=== PATIENT | male | born 1985 | race Caucasian/White ===

== ENCOUNTER 2017-05-12 14:15 | Emergency (ER) | payer OTHER ==
[2017-05-12 14:22] VITALS: BP 144/93; PULSE 78; RESP 18; TEMP 98.4
--- NOTE | 2017-05-12 14:34 | ED ---
General Adult HPI - General Chief complaint: Dental/Oral Stated complaint: mouth injury Time Seen by Provider: 05/12/17 14:23 Source: patient, RN notes reviewed Mode of arrival: ambulatory Limitations: no limitations - History of Present Illness Initial comments: Patient 31-year-old male who presents emergency room today with a chief complaint of injury to one of his front teeth that occurred about an hour half ago. Does admit that he was using a pry bar prying something up and slipped came back at him in the upper lip. Did cause a small laceration. States tetanus is up-to-date. States that he did not lose consciousness. Denies any headache. He does admit some pain locally over tooth #9. Patient states is unsure if he did any damage. Patient does admit to a local numbness type feeling. Patient denies any other complaints or symptoms. Patient denies any recent fever, chills, shortness of breath, chest pain, back pain, abdominal pain , nausea or vomiting, numbness or tingling, dysuria or hematuria, constipation or diarrhea, headaches or visual changes, or any other complaints. - Related Data Allergies Allergy/AdvReac Type Severity Reaction Status Date / Time No Known Allergies Allergy Verified 05/12/17 14:21 Review of Systems ROS Statement: Those systems with pertinent positive or pertinent negative responses have been documented in the HPI. ROS Other: All systems not noted in ROS Statement are negative. Past Medical History Past Medical History: No Reported History History of Any Multi-Drug Resistant Organisms: None Reported Past Surgical History: Appendectomy, Orthopedic Surgery Past Psychological History: ADD/ADHD Smoking Status: Current every day smoker Past Alcohol Use History: Occasional Past Drug Use History: None Reported General Exam - General Exam Comments Initial Comments: General: The patient is awake and alert, in no distress, and does not appear acutely ill. Eye: Pupils are equal, round and reactive to light, extra-ocular movements are intact. No nystagmus. There is normal conjunctiva bilaterally. No signs of icterus. Ears, nose, mouth and throat: There are moist mucous membranes and no oral lesions. No dental fractures appreciated on exam. Both teeth 8 and [address] Neck: The neck is supple, there is no tenderness or JVD. Cardiovascular: There is a regular rate and rhythm. No murmur, rub or gallop is appreciated. Respiratory: Lungs are clear to auscultation, respirations are non-labored, breath sounds are equal. No wheezes, stridor, rales, or rhonchi. Musculoskeletal: Normal ROM, no tenderness. Strength 5/5. Sensation intact. Pulses equal bilaterally 2+. Neurological: A&O x 3. CN II-XII intact, There are no obvious motor or sensory deficits. Coordination appears grossly intact. Speech is normal. Skin: Patient does have a 1 cm linear laceration running vertically midline of the upper lip. Does not cross the vermilion border. Wound edges are approximated there is no active bleeding. Psychiatric: Cooperative, appropriate mood & affect, normal judgment. Limitations: no limitations Course Vital Signs 05/12/17 14:19 Temperature 98.4 F Pulse Rate 78 Respiratory 18 Rate Blood Pressure 144/93 O2 Sat by Pulse 98 Oximetry Medical Decision Making - Medical Decision Making Was discussed with patient about the importance of following up with dentist to have teeth rechecked. Options were discussed about possible sutures for laceration to the upper lip. It does not go through to the inner aspect of his mouth. Wound edges are approximated. At this time he states he does not feel that the sutures are necessary and will be discharged home. Patient advised to continue with anti-inflammatories for pain. He is advised follow-up dentist over the next 2 days. Advised return if any symptoms increase worsen or for any other concerns. Disposition Clinical Impression: Laceration, Dental contusion Disposition: HOME SELF-CARE Condition: Good Instructions: Laceration (ED) Additional Instructions: Please follow-up with dentist in the next 1-2 days. Please use ice to the area for swelling for 10-15 minutes at a time. Please continue anti-inflammatories for pain. Please return to emergency room for any other concerns as discussed. Referrals: None,Stated [Primary Care Provider] - 1-2 days Time of Disposition: 14:33
== END 2017-05-12 14:46 | disposition home or self-care (01) ==
LOC: EC 14:15
DX: S01.511A Laceration without foreign body of lip, initial encounter (principal); S00.532A Contusion of oral cavity, initial encounter; W22.8XXA Striking against or struck by other objects, initial encounter; F17.200 Nicotine dependence, unspecified, uncomplicated
CPT/HCPCS: 99283

== ENCOUNTER 2018-01-03 10:41 | Emergency (ER) | payer OTHER ==
[2018-01-03 10:51] VITALS: BP 138/78; PULSE 71; RESP 18; TEMP 99
--- NOTE | 2018-01-03 11:12 | ED ---
Lower Extremity Injury HPI - General Chief Complaint: Extremity Injury, Lower Stated Complaint: RT ANKLE INJURY Time Seen by Provider: 01/03/18 10:50 Source: patient Mode of arrival: ambulatory Limitations: no limitations - History of Present Illness Initial Comments: This 32-year-old white male presents with a complaint of some right ankle pain. He states that he jumped off his trailer and twisted his right ankle. He is complaining of pain both laterally and medially. He denies any other injuries. He was able to ambulate slightly afterwards. He does relate that he also fractured that ankle several years ago and was treated by Dr. Ramirez from orthopedics. He denies any other complaints or modifying factors. This occurred just shortly prior to arrival. - Related Data Home Medications Medication Instructions Recorded Confirmed Ibuprofen [Motrin Ib] 600 - 800 mg PO BID 01/03/18 01/03/18 Previous Rx's Medication Instructions Recorded traMADol HCl [Ultram] 50 - 100 mg PO Q6H PRN #15 tab 01/03/18 Allergies Allergy/AdvReac Type Severity Reaction Status Date / Time No Known Allergies Allergy Verified 01/03/18 11:07 Review of Systems ROS Statement: Those systems with pertinent positive or pertinent negative responses have been documented in the HPI. ROS Other: All systems not noted in ROS Statement are negative. Past Medical History Past Medical History: No Reported History History of Any Multi-Drug Resistant Organisms: None Reported Past Surgical History: Appendectomy, Orthopedic Surgery Past Psychological History: ADD/ADHD Smoking Status: Current every day smoker Past Alcohol Use History: Occasional Past Drug Use History: None Reported General Exam Limitations: no limitations Extremities exam: Present: tenderness (Tenderness is noted both medially and laterally to the right ankle. There is no significant swelling noted. There is some pain with range of motion. There is no foot tenderness or swelling noted. There is no proximal fibular or tibia tenderness. Strength is intact.) Neurological exam: Present: alert, oriented X3. Absent: motor sensory deficit Skin exam: Present: intact. Absent: rash Course Vital Signs 01/03/18 10:47 Temperature 99 F Pulse Rate 71 Respiratory 18 Rate Blood Pressure 138/78 O2 Sat by Pulse 98 Oximetry Medical Decision Making - Medical Decision Making The patient was seen and examined. All diagnostics were reviewed. An x-ray was done of the right ankle. The radiologist does note a possible distal fibula avulsion fracture. The patient is placed in a 4 inch Ortho-Glass custom molded short leg splint by myself. Excellent post-splint neurovascular status is noted. He does relate that he has followed up with Dr. Lopez from the past and he will be [facility]. He does not have crutches and crutches will be prescribed as well. It is not felt as though he should do any weightbearing until cleared by orthopedics. Disposition Clinical Impression: Fracture of distal fibula Disposition: HOME SELF-CARE Condition: Good Instructions: Ankle Sprain (ED), Splint Care (ED) Prescriptions: traMADol HCl [Ultram] 50 - 100 mg PO Q6H PRN #15 tab PRN Reason: Pain Referrals: Karissa Ziegler MD [Primary Care Provider] - 1-2 days Joseph Rodrigez DO [Doctor of Osteopathic Medicine] - As Soon As Possible Time of Disposition: 11:35
--- NOTE | 2018-01-03 11:19 | XR ---
Right ankle HISTORY: Trauma and pain 3 views of the right ankle Small lucency question that the distal aspect of the fibula on the frontal exam. There is a spur at t he talar neck. Alignment is maintained. No dislocation. There is mild soft tissue swelling. IMPRESSION: Correlate for point tenderness at the fibula distally for nondisplaced fracture, findings may be projectional. No dislocation. Soft tissue swelling. Follow-up as indicated.
== END 2018-01-03 11:45 | disposition home or self-care (01) ==
LOC: EC 10:41
DX: S82.831A Other fracture of upper and lower end of right fibula, initial encounter for closed fracture (principal); F17.200 Nicotine dependence, unspecified, uncomplicated; Z79.1 Long term (current) use of non-steroidal anti-inflammatories (NSAID); X50.1XXA Overexertion from prolonged static or awkward postures, initial encounter; Y93.39 Activity, other involving climbing, rappelling and jumping off
CPT/HCPCS: 29515; 99283

== ENCOUNTER 2019-04-24 00:11 | Emergency (ER) | payer OTHER ==
[2019-04-24 00:19] VITALS: RESP 16; TEMP 97.9
[2019-04-24 01:16] LABS: Glucose,Whole Blood 421 mg/dL (75-99)
[2019-04-24] MEDS ORDERED: SODIUM CHLORIDE 0.9% 2,000 ML IV ONE (01:25)
[2019-04-24 01:46] LABS: Basophils # (A) 0.1 k/uL (0-0.2); Basophils % (A) 1 %; Eosinophils # (A) 0.2 k/uL (0-0.7); Eosinophils % (A) 3 %; HCT 41.4 % (39.0-53.0); HGB 14.3 gm/dL (13.0-17.5); Lymphocytes # (A) 2.7 k/uL (1.0-4.8); Lymphocytes % (A) 37 %; MCHC 34.7 g/dL (31.0-37.0); MCV 83.8 fL (80.0-100.0); Monocytes # (A) 0.2 k/uL (0-1.0); Monocytes % (A) 3 %; Neutrophils # (A) 3.9 k/uL (1.3-7.7); Neutrophils % (A) 55 %; Platelet Count 197 k/uL (150-450); RBC 4.94 m/uL (4.30-5.90); RDW 14.4 % (11.5-15.5); WBC 7.2 k/uL (3.8-10.6)
[2019-04-24 01:56] LABS: Appearance,Urine Clear (Clear); Bilirubin,Urine Negative (Negative); Blood,Urine Negative (Negative); Color,Urine Light Yellow; Glucose,Urine (UA) 4+ (Negative); Leukocyte Esterase,Urine Negative (Negative); Nitrite,Urine Negative (Negative); PH, Urine 5.5 (5.0-8.0); Protein,Urine Negative (Negative); Specific Gravity,Urine 1.035 (1.001-1.035); Urobilinogen,Urine <2.0 mg/dL (<2.0)
[2019-04-24 02:03] LABS: ALT 54 U/L (21-72); AST 36 U/L (17-59); African American GFR (CKD) >90 (>60 ml/min/1.73 sqM); Alkaline Phosphatase 85 U/L (38-126); Anion Gap 10 mmol/L; Blood Urea Nitrogen 18 mg/dL (9-20); Calcium 9.1 mg/dL (8.4-10.2); Carbon Dioxide 24 mmol/L (22-30); Chloride 98 mmol/L (98-107); Glucose 405 mg/dL (74-99); Potassium 4.5 mmol/L (3.5-5.1); Sodium 132 mmol/L (137-145); Total Bilirubin 0.4 mg/dL (0.2-1.3); Total Protein 6.6 g/dL (6.3-8.2)
[2019-04-24 02:07] LABS: Ketones,Urine 2+ (Negative)
[2019-04-24] MEDS ORDERED: INSULIN ASPART (NovoLOG) 100 UNIT/ML VIAL SQ STA (02:34)
[2019-04-24 02:35] LABS: Glucose,Whole Blood 304 mg/dL (75-99)
--- NOTE | 2019-04-24 02:50 | ED ---
Recheck HPI - General Chief Complaint: Recheck/Abnormal Lab/Rx Stated Complaint: High Sugar Time Seen by Provider: 04/24/19 01:10 Source: patient Mode of arrival: ambulatory - History of Present Illness Initial Comments: 33-year-old male patient diagnosed with diabetes yesterday presents to the emergency department today for evaluation of elevated blood sugar, dizziness, and blurred vision. Patient states that he has been feeling unwell for the last couple of weeks which prompted a visit to his primary care physician. States he is experiencing symptoms of intense thirst and frequency of urination. States his physician did labs and called him later that evening informing him that he needed to return to the office for elevated blood sugar. He was started on metformin took his first dose today. He was told by his physician to come to the emergency department if his blood sugars consistently over 400. He denies any nausea, vomiting, or diarrhea. Denies any abdominal pain. Patient denies any recent rash, fever, chills, shortness breath, chest pain, constipation, back pain, numbness, tingling, dizziness, weakness, hematuria, dysuria, urinary urgency, headache, visual changes, or any other complaints. - Related Data Home Medications Medication Instructions Recorded Confirmed Ibuprofen [Motrin Ib] 600 - 800 mg PO BID 01/03/18 01/03/18 Previous Rx's Medication Instructions Recorded traMADol HCl [Ultram] 50 - 100 mg PO Q6H PRN #15 tab 01/03/18 Allergies Allergy/AdvReac Type Severity Reaction Status Date / Time No Known Allergies Allergy Verified 01/03/18 11:07 Review of Systems ROS Statement: Those systems with pertinent positive or pertinent negative responses have been documented in the HPI. ROS Other: All systems not noted in ROS Statement are negative. Past Medical History Past Medical History: Diabetes Mellitus History of Any Multi-Drug Resistant Organisms: None Reported Past Surgical History: Appendectomy, Orthopedic Surgery Past Psychological History: ADD/ADHD Smoking Status: Current every day smoker Past Alcohol Use History: Occasional Past Drug Use History: None Reported General Exam General appearance: alert, in no apparent distress, other (Physical well- developed, well-nourished adult male patient in no acute distress. Vital signs upon presentation are temperature 97.9F, pulse 55, respirations 16, blood pressure 145/82, pulse ox 96% on room air.) Eye exam: Present: normal appearance, PERRL, EOMI. Absent: scleral icterus, conjunctival injection, periorbital swelling ENT exam: Present: normal exam, normal oropharynx, mucous membranes moist Respiratory exam: Present: normal lung sounds bilaterally. Absent: respiratory distress, wheezes, rales, rhonchi, stridor Cardiovascular Exam: Present: regular rate, normal rhythm, normal heart sounds. Absent: systolic murmur, diastolic murmur, rubs, gallop, clicks GI/Abdominal exam: Present: soft, normal bowel sounds. Absent: distended, tenderness, guarding, rebound, rigid Neurological exam: Present: alert, oriented X3, CN II-XII intact Psychiatric exam: Present: normal affect, normal mood Skin exam: Present: warm, dry, intact, normal color. Absent: rash Course Vital Signs 04/24/19 00:15 Temperature 97.9 F Pulse Rate 55 L Respiratory 16 Rate Blood Pressure 145/82 O2 Sat by Pulse 96 Oximetry Medical Decision Making - Medical Decision Making 33-year-old male patient recently diagnosed type 2 diabetes presents to the emergency department today for evaluation of dizziness, blurred vision, and elevated blood sugar. Physical examination is unremarkable. He is neurologically intact with no focal deficits. Labs reviewed and did reveal elevated blood sugar FL 5. Sodium 132. 4+ glucose and 2+ ketones in the urine. Patient was given 3 L of normal saline. 4 units of Humalog. Blood sugar did decrease to 281. Upon reevaluation patient reports improvement of symptoms. Discharge at this time with instructions to increase fluids. Follow diabetic diet. He is instructed to follow-up with his primary care physician for recheck in 1-2 days. He is instructed to request referral to diabetes education. Return parameters were discussed in detail. He verbalizes understanding and agrees this plan. - Lab Data Result diagrams: 04/24/19 01:29 04/24/19 01:29 Lab Results 04/24/19 04/24/19 04/24/19 Range/Units 01:04 01:29 01:29 WBC 7.2 (3.8-10.6) k/uL RBC 4.94 (4.30-5.90) m/uL Hgb 14.3 (13.0-17.5) gm/dL Hct 41.4 (39.0-53.0) % MCV 83.8 (80.0-100.0) fL MCH 29.0 (25.0-35.0) pg MCHC 34.7 (31.0-37.0) g/dL RDW 14.4 (11.5-15.5) % Plt Count 197 (150-450) k/uL Neutrophils % 55 % Lymphocytes % 37 % Monocytes % 3 % Eosinophils % 3 % Basophils % 1 % Neutrophils # 3.9 (1.3-7.7) k/uL Lymphocytes # 2.7 (1.0-4.8) k/uL Monocytes # 0.2 (0-1.0) k/uL Eosinophils # 0.2 (0-0.7) k/uL Basophils # 0.1 (0-0.2) k/uL Sodium 132 L (137-145) mmol/L Potassium 4.5 (3.5-5.1) mmol/L Chloride 98 (98-107) mmol/L Carbon Dioxide 24 (22-30) mmol/L Anion Gap 10 mmol/L BUN 18 (9-20) mg/dL Creatinine 0.77 (0.66-1.25) mg/dL Est GFR (CKD-EPI)AfAm >90 (>60 ml/min/1.73 sqM) Est GFR (CKD-EPI)NonAf >90 (>60 ml/min/1.73 sqM) Glucose 405 H (74-99) mg/dL POC Glucose (mg/dL) 421 H (75-99) mg/dL POC Glu Wash [employer] Pump Operator ID Wesley Zhang Calcium 9.1 (8.4-10.2) mg/dL Total Bilirubin 0.4 (0.2-1.3) mg/dL AST 36 (17-59) U/L ALT 54 (21-72) U/L Alkaline Phosphatase 85 (38-126) U/L Total Protein 6.6 (6.3-8.2) g/dL Albumin 4.0 (3.5-5.0) g/dL Urine Color Urine Appearance (Clear) Urine pH (5.0-8.0) Ur Specific [place] (1.001-1.035) Urine Protein (Negative) Urine Glucose (UA) (Negative) Urine Ketones (Negative) Urine Blood (Negative) Urine Nitrite (Negative) Urine Bilirubin (Negative) Urine Urobilinogen (<2.0) mg/dL Ur Leukocyte Esterase (Negative) Acetone, Qual Negative (Negative) 04/24/19 04/24/19 04/24/19 Range/Units 01:29 02:28 03:42 WBC (3.8-10.6) k/uL RBC (4.30-5.90) m/uL Hgb (13.0-17.5) gm/dL Hct (39.0-53.0) % MCV (80.0-100.0) fL MCH (25.0-35.0) pg MCHC (31.0-37.0) g/dL RDW (11.5-15.5) % Plt Count (150-450) k/uL Neutrophils % % Lymphocytes % % Monocytes % % Eosinophils % % Basophils % % Neutrophils # (1.3-7.7) k/uL Lymphocytes # (1.0-4.8) k/uL Monocytes # (0-1.0) k/uL Eosinophils # (0-0.7) k/uL Basophils # (0-0.2) k/uL Sodium (137-145) mmol/L Potassium (3.5-5.1) mmol/L Chloride (98-107) mmol/L Carbon Dioxide (22-30) mmol/L Anion Gap mmol/L BUN (9-20) mg/dL Creatinine (0.66-1.25) mg/dL Est GFR (CKD-EPI)AfAm (>60 ml/min/1.73 sqM) Est GFR (CKD-EPI)NonAf (>60 ml/min/1.73 sqM) Glucose (74-99) mg/dL POC Glucose (mg/dL) 304 H 345 H (75-99) mg/dL POC Glu Wash [employer] Pump Operator ID Gabrielle Smith A Robinson, Kelly, A Calcium (8.4-10.2) mg/dL Total Bilirubin (0.2-1.3) mg/dL AST (17-59) U/L ALT (21-72) U/L Alkaline Phosphatase (38-126) U/L Total Protein (6.3-8.2) g/dL Albumin (3.5-5.0) g/dL Urine Color Light Yellow Urine Appearance Clear (Clear) Urine pH 5.5 (5.0-8.0) Ur Specific [place] 1.035 (1.001-1.035) Urine Protein Negative (Negative) Urine Glucose (UA) 4+ H (Negative) Urine Ketones 2+ H (Negative) Urine Blood Negative (Negative) Urine Nitrite Negative (Negative) Urine Bilirubin Negative (Negative) Urine Urobilinogen <2.0 (<2.0) mg/dL Ur Leukocyte Esterase Negative (Negative) Acetone, Qual (Negative) 04/24/19 Range/Units 04:30 WBC (3.8-10.6) k/uL RBC (4.30-5.90) m/uL Hgb (13.0-17.5) gm/dL Hct (39.0-53.0) % MCV (80.0-100.0) fL MCH (25.0-35.0) pg MCHC (31.0-37.0) g/dL RDW (11.5-15.5) % Plt Count (150-450) k/uL Neutrophils % % Lymphocytes % % Monocytes % % Eosinophils % % Basophils % % Neutrophils # (1.3-7.7) k/uL Lymphocytes # (1.0-4.8) k/uL Monocytes # (0-1.0) k/uL Eosinophils # (0-0.7) k/uL Basophils # (0-0.2) k/uL Sodium (137-145) mmol/L Potassium (3.5-5.1) mmol/L Chloride (98-107) mmol/L Carbon Dioxide (22-30) mmol/L Anion Gap mmol/L BUN (9-20) mg/dL Creatinine (0.66-1.25) mg/dL Est GFR (CKD-EPI)AfAm (>60 ml/min/1.73 sqM) Est GFR (CKD-EPI)NonAf (>60 ml/min/1.73 sqM) Glucose (74-99) mg/dL POC Glucose (mg/dL) 281 H (75-99) mg/dL POC Glu Wash [employer] Pump Operator ID Gabrielle Smith A Calcium (8.4-10.2) mg/dL Total Bilirubin (0.2-1.3) mg/dL AST (17-59) U/L ALT (21-72) U/L Alkaline Phosphatase (38-126) U/L Total Protein (6.3-8.2) g/dL Albumin (3.5-5.0) g/dL Urine Color Urine Appearance (Clear) Urine pH (5.0-8.0) Ur Specific [place] (1.001-1.035) Urine Protein (Negative) Urine Glucose (UA) (Negative) Urine Ketones (Negative) Urine Blood (Negative) Urine Nitrite (Negative) Urine Bilirubin (Negative) Urine Urobilinogen (<2.0) mg/dL Ur Leukocyte Esterase (Negative) Acetone, Qual (Negative) Disposition Clinical Impression: Hyperglycemia due to type 2 diabetes mellitus Disposition: HOME SELF-CARE Condition: Good Instructions (If sedation given, give patient instructions): Type 2 Diabetes in Adults: New Diagnosis (ED), Diabetic Hyperglycemia (ED) Additional Instructions: Increase fluids. Follow strict diabetic diet. Take metformin as directed. Follow-up with her primary care physician for recheck as soon as possible. Re turn to the emergency department immediately for any new, worsening, or concerning symptoms. Is patient prescribed a controlled substance at d/c from ED?: No Referrals: Karissa Ziegler MD [Primary Care Provider] - 1-2 days Time of Disposition: 04:32
[2019-04-24] MEDS ORDERED: SODIUM CHLORIDE 0.9% 1,000 ML IV ONE (03:43)
[2019-04-24 03:52] LABS: Glucose,Whole Blood 345 mg/dL (75-99)
[2019-04-24 04:34] LABS: Glucose,Whole Blood 281 mg/dL (75-99)
[2019-04-24 04:43] VITALS: BP 129/73; PULSE 68
== END 2019-04-24 04:43 | disposition home or self-care (01) ==
LOC: EC 00:11
DX: E11.65 Type 2 diabetes mellitus with hyperglycemia (principal); R42 Dizziness and giddiness; H53.8 Other visual disturbances; F17.200 Nicotine dependence, unspecified, uncomplicated; Z79.1 Long term (current) use of non-steroidal anti-inflammatories (NSAID)
CPT/HCPCS: 36415; 80053; 81003; 82009; 85025; 96360; 96361; 99285

== ENCOUNTER 2020-01-06 21:20 | Inpatient (IN) | payer OTHER ==
[~2020-01-06 21:20] MED LIST: SODIUM CHLORIDE 0.9% 1,000 ML IV ONE
[2020-01-06] MEDS ORDERED: MORPHINE SULFATE 4 MG/ML SYRINGE IV STA (21:25)
[2020-01-06] MEDS ORDERED: DIPH,PERTUS(ACELL)TETVAC-LF 0.5 ML VIAL IM ONE (21:25)
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
[2020-01-06 21:38] LABS: Basophils # (A) 0.1 k/uL (0-0.2); Basophils % (A) 1 %; Eosinophils # (A) 0.1 k/uL (0-0.7); Eosinophils % (A) 1 %; HCT 48.5 % (39.0-53.0); HGB 16.5 gm/dL (13.0-17.5); Lymphocytes # (A) 2.9 k/uL (1.0-4.8); Lymphocytes % (A) 27 %; MCH 29.2 pg (25.0-35.0); MCV 85.9 fL (80.0-100.0); Mean Platelet Volume 8.1; Monocytes # (A) 0.4 k/uL (0-1.0); Monocytes % (A) 4 %; Neutrophils # (A) 7.2 k/uL (1.3-7.7); Neutrophils % (A) 67 %; Platelet Count 292 k/uL (150-450); RBC 5.64 m/uL (4.30-5.90); RDW 12.2 % (11.5-15.5); WBC 10.8 k/uL (3.8-10.6)
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
[2020-01-06 21:47] LABS: ALT 80 U/L (4-49); AST 62 U/L (17-59); African American GFR (CKD) >90 (>60 ml/min/1.73 sqM); Albumin 4.7 g/dL (3.5-5.0); Alkaline Phosphatase 52 U/L (38-126); Amylase 54 U/L (30-110); Anion Gap 12 mmol/L; Blood Urea Nitrogen 9 mg/dL (9-20); Calcium 9.1 mg/dL (8.4-10.2); Carbon Dioxide 25 mmol/L (22-30); Chloride 104 mmol/L (98-107); Glucose 178 mg/dL (74-99); Non-African American GFR(CKD) >90 (>60 ml/min/1.73 sqM); Potassium 4.6 mmol/L (3.5-5.1); Sodium 141 mmol/L (137-145); Total Bilirubin 0.5 mg/dL (0.2-1.3); Total Protein 7.5 g/dL (6.3-8.2)
--- NOTE | 2020-01-06 21:48 | XR ---
EXAMINATION TYPE: XR chest 1V portable DATE OF EXAM: 01/06/2020 COMPARISON: NONE HISTORY: Fever TECHNIQUE: Single view FINDINGS: There is poor inspiration. There is no heart failure nor confluent pneumonic infiltrate. Ex am limited by supine technique. There are chest leads. IMPRESSION: Limited exam. Inspiration decreased compared to old exam. No obvious heart failure. No pl eural fluid.
[2020-01-06 21:51] LABS: Alcohol 224 mg/dL
[2020-01-06 21:59] LABS: Creatine Kinase 208 U/L (55-170)
[2020-01-06 22:00] LABS: Prothrombin Time 10.2 sec (9.0-12.0)
[2020-01-06 22:02] LABS: Partial Thromboplastin Time 19.6 sec (22.0-30.0)
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
[2020-01-06 22:12] LABS: Creatine Kinase MB 2.1 ng/mL (0.0-2.4); Troponin I <0.012 ng/mL (0.000-0.034)
[2020-01-06] MEDS ORDERED: SODIUM CHLORIDE 0.9% 500 ML 500 ML IV ONE (22:16)
[2020-01-06] MEDS ORDERED: HYDROmorphone 1 MG/ML 1 ML SYRINGE IVP STA (22:28)
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
[2020-01-06] MEDS ORDERED: NALOXONE 0.4 MG/ML 1 ML VIAL IV PRN (22:48)
[2020-01-06] MEDS: SODIUM CHLORIDE 0.9% 1,000 ML IV SCH (23:04)
[2020-01-07] MEDS: HYDROmorphone 1 MG/ML 1 ML SYRINGE IVP PRN ×3 (00:40→07:01)
[2020-01-07 04:17] LABS: Glucose,Whole Blood 157 mg/dL (75-99)
[2020-01-07 04:34] LABS: Appearance,Urine Clear (Clear); Bilirubin,Urine Negative (Negative); Blood,Urine Negative (Negative); Color,Urine Yellow; Glucose,Urine (UA) 1+ (Negative); Granular Casts,Urine 30 /lpf (0); Hyaline Casts,Urine 3 /lpf (0-2); Ketones,Urine Negative (Negative); Leukocyte Esterase,Urine Negative (Negative); Mucus,Urine Rare /hpf; Nitrite,Urine Negative (Negative); Protein,Urine 1+ (Negative); RBC,Urine 1 /hpf (0-5); Urobilinogen,Urine <2.0 mg/dL (<2.0); WBC,Urine 1 /hpf (0-5)
[2020-01-07 04:39] LABS: Amphetamine Screen,Urine Not Detected (NotDetected); Barbiturate Screen,Urine Not Detected (NotDetected); Benzodiazepines Screen,Urine Not Detected (NotDetected); Cocaine Screen,Urine Not Detected (NotDetected); Methadone Screen, Urine Not Detected (NotDetected); Opiate Screen,Urine Detected (NotDetected); Oxycodone Screen, Urine Not Detected (NotDetected); Phencyclidine Screen,Urine Not Detected (NotDetected); Tricyclic Antidepressant,Urine Not Detected (NotDetected); Urn Cannabinoid Scrn Not Detected (NotDetected)
[2020-01-07 04:42] LABS: Specific Gravity,Urine >1.050 (1.001-1.035)
[2020-01-07] MEDS ORDERED: LIDOCAINE 1% INJ 10MG/ML (20 ML MDV) SQ ONE (06:13)
[2020-01-07] MEDS ORDERED: LIDOCAINE VISCOUS 2% 15 ML CUP MUCOUS MEM ONE (06:18)
[2020-01-07] MEDS: SODIUM CHLORIDE 0.9% 1,000 ML IV SCH ×2 (07:01→15:24)
[2020-01-07] MEDS: Empagliflozin [Jardiance] 25 MG PO SCH (09:39)
[2020-01-07] MEDS: HYDROmorphone 2 MG/ML 1 ML SYRINGE IVP PRN ×3 (09:47→16:05)
[2020-01-07] MEDS: CYCLOBENZAPRINE 10 MG TAB PO PRN (09:48)
[2020-01-07] MEDS: LIDOCAINE 5% PATCH TOPICAL SCH (09:48)
[2020-01-07] MEDS: FAMOTIDINE 20 MG TAB PO SCH ×2 (09:50→20:54)
[2020-01-07] MEDS: GLIMEPIRIDE 2 MG TAB PO SCH ×2 (09:57→21:45)
[2020-01-07] MEDS: metFORMIN 500 MG TAB PO SCH ×2 (09:57→21:44)
[2020-01-07 11:44] LABS: Glucose,Whole Blood 137 mg/dL (75-99)
[2020-01-07] MEDS: INSULIN ASPART (NovoLOG) 100 UNIT/ML VIAL SQ SCH ×3 (11:46→21:51)
[2020-01-07] MEDS: KETOROLAC 30 MG/ML 1 ML VIAL IVP SCH ×3 (11:48→23:57)
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
--- NOTE | 2020-01-07 16:52 | XR ---
Left knee HISTORY: Trauma and pain 3 views of the left knee Bone mineralization, joint spaces and alignment are maintained. No evident joint effusion. IMPRESSION: No fracture or dislocation.
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
[2020-01-07] MEDS ORDERED: ONDANSETRON 4 MG/2 ML VIAL IVP PRN (16:56)
[2020-01-07] MEDS ORDERED: ROPIVACAINE 300 MG, HYDROMORPHONE (PF) 5 MG in SODIUM CHLORIDE 0.9% 190 ML EPIDURAL PRN (16:56)
[2020-01-07] MEDS ORDERED: NALOXONE 0.4 MG/ML 1 ML VIAL IV PRN (16:56)
[2020-01-07] MEDS ORDERED: IV FLUID CONTINUATION 1,000 ML IV ONE (17:13)
[2020-01-07] MEDS ORDERED: HYDROmorphone 0.5 MG/0.5 ML SYRINGE IVP PRN (17:45)
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
--- NOTE | 2020-01-07 17:48 | P.PN ---
Progress Note - Text Progress Note Date: 01/07/20 Anesthesiology Epidural note After evaluating the patient. Deemed necessary to place an epidural for left- sided rib fractures. Patient was brought down to the recovery room TO 1723 Start 1725 . Patient was seated on the side of the bed. Back was palpated T 10 interspace was felt. Prepped and draped in utilizing sterile protocol. Lido 1% was used for local. 18-gauge Touhy needle was then used with loss of resistance to air to locate the epidural space. Loss at 10cm. Catheter threaded to 15cm at skin. Attempts 1. Test dose was negative with 4 mL of Lidoderm 1-1/2% with epi. +Pain relief. Without cardiovascular or neural response. Catheter was then dressed and left and care of nurse.
[2020-01-07] MEDS: HEPARIN SODIUM,PORCINE 5,000 UNIT/ML 1 ML VIAL SQ SCH (20:53)
[2020-01-07 20:57] LABS: Glucose,Whole Blood 136 mg/dL (75-99)
[2020-01-07] MEDS ORDERED: SODIUM CHLORIDE 0.9% 1,000 ML IV ONE (21:16)
[2020-01-07] MEDS: diphenhydrAMINE 50 MG/ML 1 ML VIAL IVP PRN (21:44)
[2020-01-07] MEDS ORDERED: SODIUM CHLORIDE 0.9% 500 ML 500 ML IV ONE (22:16)
[2020-01-08] MEDS: diphenhydrAMINE 50 MG/ML 1 ML VIAL IVP PRN ×4 (01:43→20:49)
[2020-01-08] MEDS: SODIUM CHLORIDE 0.9% 1,000 ML IV SCH ×2 (04:51→14:38)
[2020-01-08 05:59] LABS: Glucose,Whole Blood 91 mg/dL (75-99)
[2020-01-08] MEDS: INSULIN ASPART (NovoLOG) 100 UNIT/ML VIAL SQ SCH ×3 (06:36→17:43)
[2020-01-08 08:31] LABS: Basophils % (A) 0 %; Eosinophils # (A) 0.2 k/uL (0-0.7); Eosinophils % (A) 2 %; HCT 39.2 % (39.0-53.0); Lymphocytes # (A) 1.7 k/uL (1.0-4.8); Lymphocytes % (A) 22 %; MCH 29.9 pg (25.0-35.0); MCHC 34.4 g/dL (31.0-37.0); MCV 86.9 fL (80.0-100.0); Mean Platelet Volume 8.7; Monocytes # (A) 0.5 k/uL (0-1.0); Monocytes % (A) 6 %; Neutrophils # (A) 5.4 k/uL (1.3-7.7); Neutrophils % (A) 69 %; Platelet Count 176 k/uL (150-450); RBC 4.51 m/uL (4.30-5.90); RDW 12.2 % (11.5-15.5); WBC 7.9 k/uL (3.8-10.6)
[2020-01-08 08:34] LABS: HGB 13.5 gm/dL (13.0-17.5)
[2020-01-08 08:37] LABS: ALT 48 U/L (4-49); AST 51 U/L (17-59); African American GFR (CKD) >90 (>60 ml/min/1.73 sqM); Albumin 3.6 g/dL (3.5-5.0); Alkaline Phosphatase 54 U/L (38-126); Anion Gap 7 mmol/L; Bilirubin,Unconjugated 1.6 mg/dL (0.0-1.1); Blood Urea Nitrogen 18 mg/dL (9-20); Calcium 8.2 mg/dL (8.4-10.2); Carbon Dioxide 24 mmol/L (22-30); Chloride 102 mmol/L (98-107); Glucose 103 mg/dL (74-99); Magnesium 1.6 mg/dL (1.6-2.3); Non-African American GFR(CKD) >90 (>60 ml/min/1.73 sqM); Potassium 4.3 mmol/L (3.5-5.1); Sodium 133 mmol/L (137-145); Total Bilirubin 1.6 mg/dL (0.2-1.3); Total Protein 6.1 g/dL (6.3-8.2)
[2020-01-08] MEDS: HEPARIN SODIUM,PORCINE 5,000 UNIT/ML 1 ML VIAL SQ SCH ×2 (08:42→20:49)
[2020-01-08] MEDS: KETOROLAC 30 MG/ML 1 ML VIAL IVP SCH ×4 (08:42→23:37)
[2020-01-08] MEDS: FAMOTIDINE 20 MG TAB PO SCH ×2 (08:43→20:49)
[2020-01-08] MEDS: metFORMIN 500 MG TAB PO SCH ×2 (08:43→20:49)
[2020-01-08] MEDS: GLIMEPIRIDE 2 MG TAB PO SCH ×2 (08:43→20:49)
[2020-01-08] MEDS: LIDOCAINE 5% PATCH TOPICAL SCH (08:44)
[2020-01-08] MEDS ORDERED: diphenhydrAMINE 50 MG/ML 1 ML VIAL IVP STA (08:48)
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
[2020-01-08] MEDS ORDERED: TAMSULOSIN 0.4 MG CAP.ER.24H PO STA (10:23)
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
[2020-01-08] MEDS: NALBUPHINE 10 MG/0.5 ML (10 mL MDV) IV PRN ×2 (11:21→16:24)
[2020-01-08] MEDS: CYCLOBENZAPRINE 10 MG TAB PO PRN (11:25)
[2020-01-08 12:41] LABS: Glucose,Whole Blood 110 mg/dL (75-99)
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
[2020-01-08] MEDS: Empagliflozin [Jardiance] 25 MG PO SCH (14:26)
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
[2020-01-08] MEDS: MAGNESIUM SULFATE-D5W PMX 1 GM in DEXTROSE/WATER 1 100ML.BAG IVPB SCH ×2 (14:39→16:27)
[2020-01-08 17:10] LABS: Glucose,Whole Blood 103 mg/dL (75-99)
[2020-01-08 20:26] LABS: Glucose,Whole Blood 104 mg/dL (75-99)
[2020-01-09 06:08] LABS: Glucose,Whole Blood 93 mg/dL (75-99)
[2020-01-09] MEDS: INSULIN ASPART (NovoLOG) 100 UNIT/ML VIAL SQ SCH ×3 (06:17→12:54)
[2020-01-09] MEDS: KETOROLAC 30 MG/ML 1 ML VIAL IVP SCH ×3 (06:21→17:45)
[2020-01-09] MEDS: SODIUM CHLORIDE 0.9% 1,000 ML IV SCH (06:24)
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
[2020-01-09] MEDS ORDERED: TAMSULOSIN 0.4 MG CAP.ER.24H PO SCH (08:30)
[2020-01-09] MEDS: LIDOCAINE 5% PATCH TOPICAL SCH (09:41)
[2020-01-09] MEDS: FAMOTIDINE 20 MG TAB PO SCH (09:42)
[2020-01-09] MEDS: GLIMEPIRIDE 2 MG TAB PO SCH (09:42)
[2020-01-09] MEDS: HEPARIN SODIUM,PORCINE 5,000 UNIT/ML 1 ML VIAL SQ SCH (09:43)
[2020-01-09] MEDS: metFORMIN 500 MG TAB PO SCH (09:43)
[2020-01-09 11:12] VITALS: RESP 16
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
[2020-01-09 12:41] LABS: Glucose,Whole Blood 119 mg/dL (75-99)
[2020-01-09] MEDS: HYDROcodone/APAP 5-325MG 1 EACH TAB PO PRN ×2 (13:41→17:22)
[2020-01-09 14:45] VITALS: BP 135/75; PULSE 87; TEMP 98.8
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
[2020-01-09 17:20] LABS: Glucose,Whole Blood 90 mg/dL (75-99)
== END 2020-01-09 17:30 | disposition home or self-care (01) | DRG 184 ==
LOC: EC 21:20 → 3SCARD 22:51
PROVIDERS: ADMIT Surgery; ATTEND Surgery
PROC: 3E0234Z Introduction of Serum, Toxoid and Vaccine into Muscle, Percutaneous Approach (ICD-10-PCS; principal; 2020-01-06)
PROC: 09QKXZZ Repair Nasal Mucosa and Soft Tissue, External Approach (ICD-10-PCS; 2020-01-06)
PROC: 00HU33Z Insertion of Infusion Device into Spinal Canal, Percutaneous Approach (ICD-10-PCS; 2020-01-07)
DX: S22.42XA Multiple fractures of ribs, left side, initial encounter for closed fracture (principal); S06.0X1A Concussion with loss of consciousness of 30 minutes or less, initial encounter; S27.329A Contusion of lung, unspecified, initial encounter; E22.2 Syndrome of inappropriate secretion of antidiuretic hormone; J98.11 Atelectasis; E11.9 Type 2 diabetes mellitus without complications; R40.2362 Coma scale, best motor response, obeys commands, at arrival to emergency department; R40.2142 Coma scale, eyes open, spontaneous, at arrival to emergency department; R40.2252 Coma scale, best verbal response, oriented, at arrival to emergency department; S01.21XA Laceration without foreign body of nose, initial encounter; F10.129 Alcohol abuse with intoxication, unspecified; G47.33 Obstructive sleep apnea (adult) (pediatric); R33.0 Drug induced retention of urine; T40.605A Adverse effect of unspecified narcotics, initial encounter; L29.9 Pruritus, unspecified; M25.562 Pain in left knee; M25.542 Pain in joints of left hand; Y90.7 Blood alcohol level of 200-239 mg/100 ml; E66.9 Obesity, unspecified; Z68.33 Body mass index [BMI] 33.0-33.9, adult; Z79.84 Long term (current) use of oral hypoglycemic drugs; Z79.899 Other long term (current) drug therapy; Z87.891 Personal history of nicotine dependence; Z90.49 Acquired absence of other specified parts of digestive tract; Z98.890 Other specified postprocedural states; V59.9XXA Occupant (driver) (passenger) of pick-up truck or van injured in unspecified traffic accident, initial encounter; Y92.410 Unspecified street and highway as the place of occurrence of the external cause
CPT/HCPCS: 12011; 36415; 62325; 70450; 70486; 71045; 71260; 72125; 72170; 74177; 80048; 80053; 80076; 80306; 80320; 81001; 82150; 82550; 82553; 83605; 83690; 83735; 84484; 85025; 85610; 85730; 86850; 86900; 86901; 94760; 96361; 96374; 96375; 96376; 99285

== ENCOUNTER → 2020-03-24 | Outpatient (CLI) | payer OTHER ==
--- NOTE | 2020-03-24 11:22 | XR ---
EXAMINATION TYPE: XR Hip Complete LT DATE OF EXAM: 03/24/2020 CLINICAL HISTORY: pain TECHNIQUE: AP and frogleg views of the left hip are obtained. COMPARISON: None. FINDINGS: There is no acute fracture/dislocation evident. The joint space appears within normal li mits. The overlying soft tissue appears unremarkable. IMPRESSION: 1. There is no acute fracture or dislocation.ICD 10 NO FRACTURE, INITIAL EVALUATION
== END | disposition home or self-care (01) ==
LOC: RADXRMAIN 10:09
PROVIDERS: ATTEND Internal Medicine
DX: M25.552 Pain in left hip (principal)
CPT/HCPCS: 73502